=== PATIENT | female | born 1980 | race Caucasian/White ===

== ENCOUNTER 2016-11-21 09:37 | Emergency (ER) | payer SELFPAY ==
[~2016-11-21] VITALS: Ht 160 cm; Wt 83.0 kg
[~2016-11-21 09:37] MED LIST: ALBUTEROL2 MG/5 M1 PO; FIORICET PO; ZANTAC150 MG PO
[2016-11-21 10:23] VITALS: BP 171/111
--- NOTE | 2016-11-21 10:33 | NUR ---
PT AMBULATED TO ER BED 03.
--- NOTE | 2016-11-21 10:55 | NUR ---
PATIENT PRESENTS TO ED DUE TO H/A X2 DAYS . PT STATES I TOOK IBUPROFEN. DENIES N/V/D; SKIN IS PINK/WARM/DRY; AAOX4 WITH EVEN AND STEADY GAIT; LUNGS CLEAR BL; HR EVEN AND REGULAR; PT DENIES ANY FEVER, CP, SOB, OR COUGH AT THIS TIME; PATIENT STATES PAIN OF 8/10 -HEADACHE AT THIS TIME; PATIENT POSITIONED FOR COMFORT; HOB ELEVATED; BEDRAILS UP X2; BED DOWN. ER MD MADE AWARE OF PT STATUS.
--- NOTE | 2016-11-21 11:25 | NUR ---
Patient being evaluated by DR MURRY at bedside.
[2016-11-21] MEDS ORDERED: CYCLOBENZAPRINE 10 MG TAB PO ONE (11:30)
[2016-11-21] MEDS ORDERED: ACETAMINOPHEN EXTRA STRENGTH 500 MG TAB PO ONE (11:30)
--- NOTE | 2016-11-21 12:27 | NUR ---
PT AAOX4. LYING COMFORTABLY ON BED,NO ACUTE DISTRESS NOTED.VSS. PAIN SCALE DOWN TO 5/10.NEEDS ATTENDED.WILL CONTINUE TO MONITOR PT.
--- NOTE | 2016-11-21 13:24 | NUR ---
Patient discharged with v/s stable. Written and verbal after care instructions given and explained. Patient alert, oriented and verbalized understanding of instructions. Ambulatory with steady gait. All questions addressed prior to discharge. ID band removed. Patient advised to follow up with PMD. Rx of IBUFROPEN AND FLEXERIL given. Patient educated on indication of medication including possible reaction and side effects. Opportunity to ask questions provided and answered.
[2016-11-21 13:25] VITALS: BP 135/82
== END 2016-11-21 13:24 | disposition home or self-care (01) ==
LOC: MED 09:51
DX: M62.838 Other muscle spasm (principal); R03.0 Elevated blood-pressure reading, without diagnosis of hypertension; J45.909 Unspecified asthma, uncomplicated

== ENCOUNTER 2019-05-09 11:07 | Emergency (ER) | payer MEDICAID ==
[~2019-05-09] VITALS: Ht 157.5 cm; Wt 85.3 kg
[~2019-05-09 11:07] MED LIST changes: +ALBU2SYR86 PO; -ALBUTEROL2 MG/5 M1 PO; -FIORICET PO; -ZANTAC150 MG PO
[2019-05-09 11:12] VITALS: BP 164/101
--- NOTE | 2019-05-09 11:32 | NUR ---
PT AMBULATED TO BATHROOM WITH STEADY GAIT.
--- NOTE | 2019-05-09 11:37 | NUR ---
38F STATES WENT TO [facility] LAST THURSDAY WITH PRESCRIPTION ( PT UNABLE TO RECALL NAME). STATES THE MEDICATION IS CAUSING 10/10 HEADACHE AND DIZZINESS AND N/V. VOMITED 5X. STATES DARKNESS IN VISION. NO FEVER, NO ABD PAIN. AOX4. STEADY AMBULATION. HX: HTN ALL: NONE Addendum: 05/09/19 at 1149 by HANNAH WENT TO [facility] FOR DIZZINESS
--- NOTE | 2019-05-09 11:49 | NUR ---
DR. FALCON AT BEDSIDE TO ASSESS
[2019-05-09] MEDS ORDERED: ONDANSETRON 4 MG ODT PO ONE (12:00)
[2019-05-09] MEDS ORDERED: MECLIZINE 25 MG TAB PO ONE (12:00)
[2019-05-09] MEDS ORDERED: ACETAMINOPHEN 325 MG TAB PO ONE (12:00)
--- NOTE | 2019-05-09 13:06 | NUR ---
DR. FALCON AT BEDSIDE WITH PATIENT.
--- NOTE | 2019-05-09 13:45 | NUR ---
Patient discharged with v/s stable. Written and verbal after care instructions given and explained. Patient alert, oriented and verbalized understanding of instructions. Ambulatory with steady gait. All questions addressed prior to discharge. ID band removed. Patient advised to follow up with PMD. Rx of ZOFRAN, MECLIZINE given. Patient educated on indication of medication including possible reaction and side effects. Opportunity to ask questions provided and answered.
[2019-05-09 13:55] VITALS: BP 128/72
== END 2019-05-09 13:45 | disposition home or self-care (01) ==
LOC: MED 11:07
DX: R42 Dizziness and giddiness (principal); R51 Headache; R11.0 Nausea; J45.909 Unspecified asthma, uncomplicated; I10 Essential (primary) hypertension; Z90.49 Acquired absence of other specified parts of digestive tract; Z79.899 Other long term (current) drug therapy
CPT/HCPCS: 81025; 99284; J8597; Q0162